=== PATIENT | female | born 1955 | race Caucasian/White ===

== ENCOUNTER → 2021-06-02 | Outpatient (CLI) | payer MEDICARE ==
[2021-06-03 15:13] LABS: ENDOMYSIAL ANTIBODY IGA Negative (Negative); IMMUNOGLOBULIN A, QN, SERUM 140 mg/dL (87-352); T-TRANSGLUTAMINASE (TTG) IGA <2 U/mL (0-3)
== END ==
LOC: LAB 10:46
PROVIDERS: Physician Assistant Surgical
DX: R19.7 Diarrhea, unspecified (principal)
CPT/HCPCS: 36415; 82784; 87045; 87046; 87177; 87209

== ENCOUNTER → 2021-06-29 | Outpatient (CLI) | payer OTHER | LOC: CT 13:00 | DX: R10.13 Epigastric pain (principal) | CPT/HCPCS: 36415; 74160; 82565; 84520; Q9967 ==